=== PATIENT | female | born 1985 | race African-American/Black ===

== ENCOUNTER 2019-05-30 21:47 | Emergency (ER) | payer SELFPAY ==
[2019-05-30] MEDS ORDERED: Ketorolac Tromethamine 30 MG/ML VIAL ONE (22:15)
== END 2019-05-30 22:29 | disposition home or self-care (01) ==
LOC: ERS 21:47
DX: K04.7 Periapical abscess without sinus (principal)
CPT/HCPCS: 96372; 99283; J1885

== ENCOUNTER 2019-08-14 02:08 | Inpatient (IN) | payer MEDICAID, SELFPAY ==
[2019-08-14] MEDS ORDERED: Ondansetron PF 4 MG/2 ML Vial ONE ×2 (02:22→14:46)
[2019-08-14] MEDS ORDERED: Ketorolac Tromethamine 30 MG/ML VIAL ONE ×2 (02:26→14:46)
[2019-08-14 02:33] LABS: #Eosinphils 0.1 thou/uL (0.0-0.7); #Lymphocytes 2.6 thou/uL (1.20-3.40); #Monocytes 0.7 thou/uL (0.11-0.59); #Neutrophils 6.6 thou/uL (1.40-6.50); %Basophils 0.3 % (0.0-1.0); %Eosinophils 0.9 % (0.0-10.0); %Lymphocytes 26.1 % (21.0-51.0); %Monocytes 6.6 % (0.0-10.0); %Neutrophils 66.1 % (42.0-75.0); Hemoglobin 12.4 g/dL (12.0-16.0); Mean Corpuscular HGB CONC 33.3 g/dL (32.0-36.0); Mean Corpuscular Hemoglobin 26.2 pg (27.0-31.0); Mean Corpuscular Volume 78.8 fL (78.0-98.0); Mean Platelet Volume 8.3 fL (7.4-10.4); Platelet Count 333 thou/uL (130-400); RBC Distribution Width 13.6 % (11.5-14.5); Red Blood Cell (RBC) Count 4.73 mill/uL (4.20-5.40)
[2019-08-14 02:50] LABS: ALT (SGPT) 14 U/L (8-55); AST (SGOT) 19 U/L (5-34); Albumin 4.4 g/dL (3.5-5.0); Alkaline Phosphatase 81 U/L (40-110); Anion Gap 11 mmol/L (10-20); BUN (Urea Nitrogen) 11 mg/dL (7.0-18.7); Bilirubin, Total 0.2 mg/dL (0.2-1.2); Calc. Creatinine Clearance 0 mL/min (70-130); Calcium 9.6 mg/dL (7.8-10.44); Carbon Dioxide 27 mmol/L (22-29); Chloride 104 mmol/L (98-107); Estimated GFR-MDRD Greater than 90; Globulin 2.9 g/dL (2.4-3.5); Glucose 103 mg/dL (70-105); Lipase 47 U/L (8-78); Potassium 3.3 mmol/L (3.5-5.1); Protein, Total 7.3 g/dL (6.0-8.3); Sodium 139 mmol/L (136-145)
[2019-08-14 02:56] LABS: Pregnancy Test - Urine (BHCG) Negative (Negative); Pregu Control Background? CLEAR/WHITE (CLR/WHITE); Pregu Control Bar Appear? YES (CONTROL BAR); Specific Gravity 1.012 (1.002-1.036)
[2019-08-14 02:58] LABS: Bilirubin Negative (Negative); Blood, Urine 1+ (Negative); Clarity Turbid (Clear); Glucose, Urine (Dipstick) Normal (Negative); Leukocyte 250 Leu/uL (Negative); Nitrite Negative (Negative); Protein, Urine (Dipstick) 10 mg/dL (Neg-Trace); RBC/HPF 21-50 HPF (0-3); Squamous Epithelial 0-3 HPF (0-3); Urobilinogen Normal mg/dL (Less than 2); WBC/HPF Greater than 50 HPF (0-3)
[2019-08-14 03:00] LABS: Bacteria/HPF 1+ HPF (None Seen)
[2019-08-14] MEDS ORDERED: Ondansetron PF 4 MG/2 ML Vial IVP PRN (04:29)
[2019-08-14] MEDS ORDERED: Ondansetron ODT 4 MG TAB SL PRN (04:29)
[2019-08-14] MEDS ORDERED: Ketorolac Tromethamine 30 MG/ML VIAL IVP PRN (04:30)
[2019-08-14] MEDS ORDERED: Acetaminophen 325 MG TAB PO PRN (05:10)
[2019-08-14] MEDS: Dextrose 5 % And 0.9 % NaCl 1,000 ML IV SCH ×2 (05:38→20:12)
[2019-08-14] MEDS ORDERED: Potassium Chloride 20 MEQ in Premix Bag 1 BAG IVPB SCH (06:30)
[2019-08-14] MEDS: cefTRIAXone\\ROCEPHIN 1 GM in Sodium Chloride 0.9% 100 ML IVPB SCH (06:57)
--- NOTE | 2019-08-14 08:37 | CT ---
PRELIMINARY REPORT/[facility]/EMERGENCY AFTER HOURS PROCEDURE: Receipt of this report by the clinical staff was confirmed with Josette French by Ainsley Morton on 2019 03:25:00 NAIL ASSEMBLY MACHINE OPERATOR. Addendum electronically signed by Ainsley Morton on August 14, 2019 3:25:24 AM NAIL ASSEMBLY MACHINE OPERATOR EXAM: CT Abdomen and Pelvis Without Intravenous Contrast CLINICAL HISTORY: 34 yo F presents to ED with c/o right flank pain. pt reports sudden onset right flank pain that start ed yesterday, with associated nausea, vomiting, chills, some right sided abdominal pain, and some uri nary frequency. TECHNIQUE: Axial computed tomography images of the abdomen and pelvis without intravenous contrast. CONTRAST: None. COMPARISON: None provided. FINDINGS: LUNG BASES: No basilar airspace consolidation or pleural effusion. LIVER: Unremarkable. GALLBLADDER AND BILE DUCTS: Unremarkable. No calcified stone. No ductal dilation. PANCREAS: Unremarkable. SPLEEN: Unremarkable. ADRENAL GLANDS: Unremarkable. KIDNEYS, URETERS, AND BLADDER: Right proximal ureter stone measuring 1.0 x 1.5 x 2.7 cm. Within the right ureter, there are also a 7 mm stone and distal right ureteral 5 mm stone. There is resulting m oderate right hydronephrosis. There is calcification of bilateral renal medulla. STOMACH AND BOWEL: No obstruction. No wall thickening. No CT evidence of colitis or acute diverticuli tis. APPENDIX: No CT evidence for appendicitis. PERITONEUM: No free fluid. No free air. LYMPH NODES: No lymphadenopathy. REPRODUCTIVE: Unremarkable as visualized. VASCULATURE: No aortic aneurysm. ABDOMINAL WALL AND SOFT TISSUES: Unremarkable. BONES: No fracture or suspicious osseous abnormality. IMPRESSION: 1. Multiple obstructing the right sided urinary stones measuring up to 2.7 cm at the right renal pel vis/proximal ureter junction. This results in moderate acute right hydronephrosis. Recommend urolog y evaluation. 2. Medullary nephrocalcinosis suggested. Correlate for hyperparathyroidism, medullary sponge kidney or renal tubular acidosis among other potential causes. ELECTRONICALLY SIGNED BY: [place] M.D. Aug 14, 2019 3:17:19 AM NAIL ASSEMBLY MACHINE OPERATOR This report is intended for review by the ordering physician only, in accordance of law. If you recei ve this report in error, please call [facility] at [phone]. FINAL REPORT ABDOMEN CT WITH CONTRAST PELVIC CT WITH CONTRAST: HISTORY: Right flank pain. Sudden onset. FINDINGS: ABDOMEN CT: Clear lung bases. Limited evaluation of the solid organs by the absence of IV contrast. Grossly, no solid organ abnormality. Ventral abdominal wall hernia containing mesenteric fat with stranding. No bowel herniation. Limite d evaluation of the alimentary canal by the lack of oral contrast. No bowel obstruction. Normal ora iber appendix. There is bilateral medullary calcification. Correlate for renal tubular acidosis versus hyperparathy roidism versus medullary sponge kidney. No evidence of left-sided obstructive uropathy. There is se shilpa right-sided obstructive uropathy secondary to a calculus in the right proximal ureter. This ora culus measures 2.5 cm craniocaudal x 1.3 cm mediolateral x 0.9 cm anterior posterior. Right ureter i s dilated secondary to a calculus in the right ureterovesicular junction measuring 0.8 x 0.6 cm in th e axial plane. There is a third calculus in the right ureterovesicular junction measuring 0.4 x 0[address]: Limited evaluation due to technique. Possible fluid in the endometrium. Possible large cyst occupyi ng the majority of the right ovary measuring 2.4 x 2.8 cm with an attenuation coefficient of 17 Houns field units. Left adnexa is grossly unremarkable. IMPRESSION: 1. Three separate obstructing calculi along the course of the right ureter as described above. Asso ciated severe hydronephrosis. 2. Increased density in both renal medulla as described above. 3. Hypodensities in the left and right adnexa, incompletely evaluated. Pelvic ultrasound may be dale eficial. 4. Normal caliber appendix. 5. Ventral abdominal hernia containing mesenteric fat. This report is essentially in agreement with the initial report by [facility]. Nonemergent ult rasound is recommended to better assess the adnexa. CODE T POS: PPP
[2019-08-14] MEDS ORDERED: Potassium Chloride 20 MEQ TAB PO SCH (08:45)
[2019-08-14] MEDS ORDERED: Enoxaparin Sodium 40 MG/0.4 ML SYRINGE SC SCH (09:00)
[2019-08-14] MEDS: Tamsulosin HCl 0.4 MG CAP PO SCH (09:03)
[2019-08-14] MEDS: Famotidine/PF 20 mg/2ml Vial SLOW IVP SCH ×2 (09:04→20:13)
--- NOTE | 2019-08-14 10:01 | HP ---
CHIEF COMPLAINT: Right flank pain. HISTORY OF PRESENT ILLNESS: The patient is a 34-year-old female with no past medical history, who presents to the hospital, complains of right flank pain x1 day. The patient states that she had an episode with right flank pain about a month ago, which resolved on its own. She stated that last night she started having intense pain, they were worse than labor pain, followed by nausea, vomiting, and so she came into the hospital for further evaluation. PAST MEDICAL HISTORY: Denies. SURGICAL HISTORY: She has had x2. SOCIAL HISTORY: She denies any alcohol use, drug use, or smoking history. She is a full code. ALLERGIES: SHE HAS NO KNOWN DRUG ALLERGIES. FAMILY HISTORY: Mother has diabetes. REVIEW OF SYSTEMS: All negative except for the ones mentioned above in the HPI. PHYSICAL EXAMINATION: VITAL SIGNS: Temperature 98.9, pulse 68, respirations 14, oxygen saturation 98% on room air, blood pressure 142/93. GENERAL: She is awake, alert, oriented x3, does not appear in distress. CVS: S1 and S2 present. No murmurs, rubs, or gallops. LUNGS: Clear to auscultation with no rhonchi or wheezes noted. ABDOMEN: Soft and nontender. Bowel sounds are present x2. EXTREMITIES: No edema. Pedal pulses are present x2. NEUROVASCULAR: There are no focal deficits noted. SKIN: No cuts, lesions, or bruises noted. LABORATORY RESULTS: WBCs of 10.0, hemoglobin of 4.7, hematocrit of 37.3, platelets of 333. Chemistries; sodium 139, potassium 3.3, BUN of 11, creatinine 0.78. High urine indicated leukocyte esterase of 250, wbc's greater than 50, and 1+ bacteria. She did have a CT abdomen and pelvis, which indicated a very large 2.7 cm right ureteral, UV junction stone; and mild hydronephrosis. ASSESSMENT AND PLAN: The patient is a 34-year-old female, who presents to the hospital with complaints of right flank pain. 1. Right flank pain secondary to kidney stone. We will start the patient on some IV hydration. We will start her on Flomax. We will also give her prophylactic antibiotics. She is n.p.o. right now as Urology has been consulted. Also, we will start the patient on some Toradol. She had significant relief upon using Toradol. 2. Deep venous thrombosis prophylaxis. We will put the patient on SCDs. Job ID: [id number]
[2019-08-14] MEDS ORDERED: Lidocaine 1% PF 5 ML VIAL ONE (14:46)
[2019-08-14] MEDS ORDERED: Dexamethasone 20 MG/5 ML VIAL ONE (14:46)
[2019-08-14] MEDS ORDERED: PROPOFOL 200 MG/20 ML VIAL ONE (14:46)
--- NOTE | 2019-08-14 15:29 | PDOC.BPN ---
- Brief Progress Note The patient was seen and examined prior to her urologic procedure today. She had no new complaints at the time. Appetite potassium will be replaced. She is afebrile. I will continue IV antibiotics for UTI. Appreciate UROLOGY.
[2019-08-14] MEDS ORDERED: Iothalamate Meglumine 60% 50 ML VIAL FS ONE (16:12)
[2019-08-14] MEDS ORDERED: Fentanyl 100 MCG/2 ML VIAL ONE ×2 (16:43→17:39)
[2019-08-14] MEDS ORDERED: cefTRIAXone\\ROCEPHIN 2 GM VIAL ONE (17:47)
[2019-08-14] MEDS ORDERED: Sodium Chloride 0.9% 100 ML ONE (17:48)
[2019-08-14] MEDS ORDERED: Meperidine HCl/PF 25 MG/ML VIAL SLOW IVP PRN (18:14)
[2019-08-14] MEDS ORDERED: Promethazine HCl 25 MG/ML VIAL SLOW IVP PRN (18:14)
[2019-08-14] MEDS ORDERED: B & O ONE (18:20)
--- NOTE | 2019-08-14 18:37 | RAD ---
EXAM: XR IVP Retrograde DATE: 08/14/2019 12:00 AM INDICATION: Right renal stone and stent COMPARISON: CT the abdomen and pelvis without contrast dated August 14, 2019 FINDING: Submitted images demonstrate wire placement within the right ureteral stent traversing the patient's large right proximal ureteral stone. Subsequent images demonstrate retrograde opacification of the right renal collecting system with a focal filling defect within the right proxi mal ureter. There is mild right hydronephrosis. Subsequent images demonstrate placement of a right ureteral stent. A moderate residual stone is suspected within the distal right ureter on the final webster bmitted image. IMPRESSION:IVP with placement of a right ureteral stent. Moderate residual stone is suspected within distal right ureter adjacent to the right ureteral stent on the final submitted image.
[2019-08-14] MEDS: Trospium 20 MG TAB PO SCH (20:13)
[2019-08-14] MEDS ORDERED: FLU VACC QS2019-20(6MOS UP)/PF 60 MCG/0.5 ML SYRINGE IM ONE (21:00)
--- NOTE | 2019-08-14 22:39 | CON ---
DATE OF CONSULTATION: 08/14/2019 REASON FOR HOSPITAL ADMISSION: Right-sided flank pain and right kidney stones. 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 The patient is 3, para 4. She reports she had severe right-sided flank pain symptoms, presented to the [place] [facility] last night, underwent CT scanning which demonstrated fragmented stones in her left upper ureter. These were impacted and had a Steinstrasse formation. The patient was subsequently transported to the [facility] Emergency Department and admitted for observation, potential stent placement, possible early discharge. The patient has been n.p.o. all day since yesterday evening. At the present time, she has intermittent right-sided flank pain symptoms into the Steinstrasse configuration were concerning proceeding to the operating room. In total, her stone burden is about 1 cm x 1.5 cm x 2.7 cm in a Steinstrasse configuration. ALLERGIES: NO KNOWN DRUG ALLERGIES. CURRENT MEDICATIONS: None. PAST MEDICAL HISTORY: The patient has had several births including a . She had a child about 10 months ago as well. She has twins as well. SOCIAL HISTORY: The patient is a cigarette smoker at half pack per day for 20 years. She does not consume significant amounts of alcohol. No other substance abuse issues. PHYSICAL EXAMINATION: VITAL SIGNS: Weight 180 pounds, temperature 98.5, pulse 76, respirations 16, blood pressure is 119/66, O2 saturation is 98% on room air. GENERAL: Awake, alert, pleasant, female, in no apparent distress. She reports severe right-sided flank pain symptoms, which have improved significantly on Toradol. She has had some nausea and had severe vomiting as well prior to the Toradol. ABDOMEN: Soft, obese, and nontender. The patient has recently delivered a child. There is a Pfannenstiel type surgical incisional scar, which is well healed. BACK: After the administration of Toradol, she had complete resolution of her symptoms and on percussion, I am not able to elicit any flank pain symptoms at the present. She does report intermittent discomfort and severe vomiting prior to that. EXTREMITIES: Appear within normal limits with no clubbing, cyanosis, or edema. GENITOURINARY: Deferred to the operative suite. LABORATORY STUDIES: As per the [place] [facility]. CT scan of the abdomen and pelvis demonstrates significant stone burden as described. Study from 08/14/2019 shows 1 cm x 1.5 cm x 2.7 cm total stone burden. I did review those films on the [employer] monitor. ASSESSMENT: 1. Steinstrasse of the right ureter. 2. The plan will be to proceed to the operating room with cystoscopy and stent placement. 3. History of borderline gestational diabetes rather. The patient's blood glucose should be monitored. TIME SPENT: Total evaluation and coordination of care time today is 70 minutes exclusive of any procedures performed. Job ID: [id number]
--- NOTE | 2019-08-15 00:32 | OP ---
DATE OF PROCEDURE: 08/14/2019 LOCATOR SURGEON: None. PREOPERATIVE DIAGNOSES: Right ureteral calculi and Steinstrasse configuration with intractable right-sided flank pain. POSTPROCEDURE DIAGNOSES: Right ureteral calculi and Steinstrasse configuration with intractable right-sided flank pain, predominantly radiolucent stones. PROCEDURES PERFORMED: 1. Cystourethroscopy with right-sided stent, 56072. 2. Cystourethroscopy with snare capture of right distal ureteral calculus. 3. Right retrograde pyelography, 99397. SPECIMENS REMOVED: Right ureteral stones for chemical analysis. These were pale, white in coloration, and mostly radiolucent. ESTIMATED BLOOD LOSS: 0 mL. DRAINS AND TUBES: 4.5-Malaysian x 28 cm double-J ureteral stent in the right ureter. BRIEF HISTORY: Ms. Garg is a very pleasant 34-year-old, Tamazight-speaking female with no previous history of kidney stones. She has had three pregnancies and four births including twins and recently had her 4th child. The patient reported severe pain symptoms, presented to the [facility] Emergency Department, underwent CT scanning demonstrating very significant stone burden enlarged in her right UPJ area. She had intractable pain and ultimately decided to proceed to the [facility] for evaluation and assessment, where I saw her. The patient underwent cystoscopic evaluation today as outlined in the operative note. DESCRIPTION OF PROCEDURE: The patient was appropriately identified in the preoperative holding area. Informed written consent was obtained. The patient was transported to the operative suite, placed in a supine position on the cysto-fluorographic table. General anesthesia was established using LMA airway. The patient was prepped and draped in usual sterile fashion after repositioning in the supine lithotomy position. Cystoscopic evaluation was then performed. The patient's bladder was free of any calculi. We noted that the right distal ureter was enlarged in characteristic. The right distal ureteral calculus was dislodged and snare captured. Multiple small additional fragments proceeded from the right UO. We placed a right-sided double-J ureteral stent, procedure consisting of placement of a 0.035 angled Glidewire which was advanced over a 5-Malaysian Pollack catheter. We performed retrograde pyelography demonstrating radiolucent filling defects. The patient then had replacement of the Glidewire and placement of a 4.5-Malaysian x 28 cm double-J ureteral stent. The patient tolerated that portion of procedure well. Her bladder was drained. We placed belladonna and opioid suppository 16A 60 mg per rectum. The patient tolerated the procedure well. She was transported to the postoperative recovery area, doing well, anticipated she will be returned to the surgical floor, and ultimately discharged home. The patient will follow up in my office in two weeks time with a KUB imaging study, and we will see her in the office for review that after that is performed. Job ID: [id number]
[2019-08-15] MEDS: Dextrose 5 % And 0.9 % NaCl 1,000 ML IV SCH (06:00)
[2019-08-15 08:04] VITALS: BP 134/78; TEMP 98.2
[2019-08-15] MEDS ORDERED: Phenazopyridine HCl 97.5 MG TABLET PO SCH (09:00)
[2019-08-15] MEDS: Tamsulosin HCl 0.4 MG CAP PO SCH (09:10)
[2019-08-15] MEDS: cefTRIAXone\\ROCEPHIN 1 GM in Sodium Chloride 0.9% 100 ML IVPB SCH (09:10)
[2019-08-15] MEDS: Trospium 20 MG TAB PO SCH (09:11)
[2019-08-15] MEDS: Famotidine/PF 20 mg/2ml Vial SLOW IVP SCH (09:13)
--- NOTE | 2019-08-16 02:07 | DIS ---
DATE OF ADMISSION: 08/14/2019 DATE OF DISCHARGE: 08/15/2019 HISTORY OF PRESENT ILLNESS: This is a 34-year-old female with no significant past medical history, who presented to the emergency department with complaints of right flank pain for one day. The patient stated that her pain was 10/[address] scan of the abdomen without contrast showed fragmented stones in her right ureter. Urinalysis revealed evidence of possible UTI. The patient was admitted to the hospital for further management. HOSPITAL COURSE: The patient was not septic. IV antibiotics were started empirically for possible UTI. Urology Service consulted and the patient underwent successful stone extraction with stent placement. Postoperatively, the patient had no complaints and did not exhibit any signs of sepsis. DISCHARGE DIAGNOSES: 1. Obstructing right ureteric stone. 2. Urinary tract infection. DISCHARGE MEDICATIONS: 1. Augmentin 875/125 one tablet orally twice daily. 2. Tamsulosin 0.4 mg orally daily for 14 days. 3. Tylenol 650 mg orally q.4 hours as needed for pain. DISCHARGE INSTRUCTIONS: Activity: As tolerated. Increase fluid intake. Follow up with Urology in 2 weeks. A KUB order was given to the patient to be obtained prior to her followup appointment. Job ID: [id number]
--- NOTE | 2019-08-16 04:50 | PQF ---
Celia Garg MOEZ [id number] CLINICAL DOCUMENTATION CLARIFICATION FORM: POST DISCHARGE Addendum to original discharge summary date: ____ Late entry note date: __ DATE:08/16/2019 ATTN: Liam Del Cid Please exercise your independent, professional judgment in responding to the clarification form. Clinical indicators are provided on the bottom of this form for your review In your clinial opinion based on clinical findings below, can you please clarify clinical significance of Radiology findings if: Please check appropriate box(s): [ >> ] Hydronephrosis is clinically significant to patient's condition [ ] Hydronephrosis is abnormal findings not clinically significant [ ] Other diagnosis [ ] Unable to determine In addition, please specify: Present on Admission (POA): [ >> ] Yes [ ] No [ ] Unable to determine For continuity of documentation, please document condition throughout progress notes and discharge summary. Thank You. CLINICAL INDICATORS - SIGNS / SYMPTOMS / LABS CT abdomen 08/14 Impression: Multiple obstructing right sided urinary stone at right ureter junction. This result in moderate acute right hydronephrosis. Retrograde Pyelogram 08/14 Findings : there is mild right hydronephrosis H&P p1 08/14 Dr Whyte complains of right flank pain x1 day. The pt states that she had an episode with right flank pain about a month ago, which resolved on its own RISK FACTORS Discharge summary p1 08/15 Obstructing right ureteric stone Discharge summary p1 08/15 Urinary tract infection TREATMENTS: SEP 03 IV Rocephin 2gm MAR 08/14 IVF 1L MAR 08/14 Flomax 0.4 mg po SEP 03 Vesicare 5mg po Operative report 08/14 Cystourethroscopy with stent insertion, stone extraction and Right retrograde pyelogram Urology consult 08/14 Roberto Garcia (This form is maintained as a part of the permanent medical record) 2014 [employer] All Rights Reserved [email or web address]
== END 2019-08-15 11:10 | disposition home or self-care (01) | DRG 661 ==
LOC: ERS 02:08 → OBSVTOIN 04:24 → 3SE 04:24
PROVIDERS: ADMIT Internal Medicine; ATTEND Internal Medicine
PROC: 0TC68ZZ Extirpation of Matter from Right Ureter, Via Natural or Artificial Opening Endoscopic (ICD-10-PCS; principal; 2019-08-14)
PROC: 0T768DZ Dilation of Right Ureter with Intraluminal Device, Via Natural or Artificial Opening Endoscopic (ICD-10-PCS; 2019-08-14)
PROC: BT1DZZZ Fluoroscopy of Right Kidney, Ureter and Bladder (ICD-10-PCS; 2019-08-14)
DX: N13.6 Pyonephrosis (principal); Z28.21 Immunization not carried out because of patient refusal
CPT/HCPCS: 36415; 74176; 74420; 80053; 81003; 81015; 81025; 82365; 83690; 85025; 87086; 88300; C1758; C1769; J0696; J1100; J1885; J2001; J2405; J2704; J3010; J3480; J3490; S0028

== ENCOUNTER 2019-11-15 18:23 | Inpatient (IN) | payer MEDICAID ==
[2019-11-15 18:55] LABS: #Lymphocytes 1.6 thou/uL (1.20-3.40); #Monocytes 0.6 thou/uL (0.11-0.59); #Neutrophils 12.1 thou/uL (1.40-6.50); %Basophils 0.2 % (0.0-1.0); %Eosinophils 0.1 % (0.0-10.0); %Lymphocytes 11.1 % (21.0-51.0); %Monocytes 4.1 % (0.0-10.0); %Neutrophils 84.4 % (42.0-75.0); Hemoglobin 10.2 g/dL (12.0-16.0); Mean Corpuscular HGB CONC 32.1 g/dL (32.0-36.0); Mean Corpuscular Hemoglobin 24.9 pg (27.0-31.0); Mean Corpuscular Volume 77.4 fL (78.0-98.0); Platelet Count 528 thou/uL (130-400); White Blood Cell (WBC) Count 14.4 thou/uL (4.8-10.8)
[2019-11-15] MEDS ORDERED: Ondansetron PF 4 MG/2 ML Vial ONE (19:15)
[2019-11-15 19:18] LABS: ALT (SGPT) 17 U/L (8-55); AST (SGOT) 15 U/L (5-34); Albumin 3.9 g/dL (3.5-5.0); Alkaline Phosphatase 90 U/L (40-110); Anion Gap 16 mmol/L (10-20); BUN (Urea Nitrogen) 10 mg/dL (7.0-18.7); Bilirubin, Total 0.7 mg/dL (0.2-1.2); Calc. Creatinine Clearance 0 mL/min (70-130); Calcium 9.7 mg/dL (7.8-10.44); Carbon Dioxide 22 mmol/L (22-29); Chloride 101 mmol/L (98-107); Estimated GFR-MDRD 70; Globulin 3.9 g/dL (2.4-3.5); Glucose 88 mg/dL (70-105); Potassium 3.9 mmol/L (3.5-5.1); Protein, Total 7.8 g/dL (6.0-8.3); Sodium 135 mmol/L (136-145)
[2019-11-15 19:55] LABS: Bilirubin Negative (Negative); Blood, Urine 1+ (Negative); Clarity Turbid (Clear); Glucose, Urine (Dipstick) Normal (Negative); Leukocyte 500 Leu/uL (Negative); Nitrite Negative (Negative); Pregnancy Test - Urine (BHCG) Negative (Negative); Pregu Control Background? CLEAR/WHITE (CLR/WHITE); Pregu Control Bar Appear? YES (CONTROL BAR); Protein, Urine (Dipstick) 30 mg/dL (Neg-Trace); Specific Gravity 1.016 (1.002-1.036); Squamous Epithelial 0-3 HPF (0-3); Urobilinogen Normal mg/dL (Less than 2); WBC/HPF 21-50 HPF (0-3)
[2019-11-15 20:03] LABS: Bacteria/HPF 1+ HPF (None Seen)
[2019-11-15] MEDS ORDERED: Ketorolac Tromethamine 30 MG/ML VIAL ONE (20:40)
--- NOTE | 2019-11-15 21:23 | CT ---
CT OF THE ABDOMEN AND PELVIS WITHOUT IV CONTRAST: 11/15/19 INDICATION: Flank pain with vomiting. COMPARISON: CT of the abdomen and pelvis dated 08/14/19 and IVP retrograde evaluation dated 11/12/19. FINDINGS: There are small bilateral pleural effusions. The unopacified liver, pancreas, and adrenal glands are unremarkable appearing. There is persistent prominent right sided hydronephrosis. There is a right sided ureteral stent in pl fili. There is a 1.3 cm stone seen within the right mid ureter adjacent to the right ureteral stent. T here is an additional 6 mm stone involving the distal right ureter on image 62 of series 2. One addit ional 3.5 mm stone is seen within the mid to distal right ureter on image 61 of series 2. The stent i s in the expected position within the bladder. There is bilateral medullary nephrocalcinosis that is similar appearing. The left sided renal collecting system is nondistended. There is a small anterior midline abdominal wall hernia containing fat. There is slight increasing fl uid within the hernia sac possibly related to fluid from the abdominal cavity or changes of bowel str angulation. Fat containing umbilical hernia is similar appearing. Reproductive structures are not well evaluated on the current examination. The colon is largely decom pressed. Small bowel is of normal caliber. There is a normal retrocecal appendix. Small amount of free fluid is seen within the pelvis which is nonspecific. No definite acute osseous abnormality is evident. IMPRESSION: 1. Previously seen 13 mm proximal right ureteral stone has likely migrated distally to the mid t o distal right ureter with additional 6 mm and 3.5 mm stones within the mid to distal right ureter. T here is a right ureteral stent in place. 2. There is persistent prominent dilatation of the right renal collecting system. 3. Stable medullary nephrocalcinosis. 4. Slight increasing fluid in the hernia sac involving a midline anterior abdominal wall hernia containing fat. Some of this may be related to some fluid from the abdominal cavity protruding into t he hernia sac; however, component of strangulation is not entirely excluded. Recommend correlation w ith clinical examination. 5. Other findings as above. POS: BH
[2019-11-15] MEDS ORDERED: cefTRIAXone\\ROCEPHIN 1 GM VIAL ONE (21:30)
[2019-11-15] MEDS ORDERED: Morphine 4 MG/ML VIAL ONE (21:30)
[2019-11-15] MEDS ORDERED: Vancomycin 1 GM/200 ML BAG ONE (21:52)
[2019-11-15] MEDS ORDERED: Ondansetron PF 4 MG/2 ML Vial IVP PRN (22:51)
[2019-11-15] MEDS ORDERED: Acetaminophen 325 MG TAB PO PRN (22:51)
[2019-11-15] MEDS ORDERED: Ondansetron ODT 4 MG TAB SL PRN (22:51)
[2019-11-15] MEDS ORDERED: Sodium Chloride 0.9% 1,000 ML IV SCH (22:51)
[2019-11-15 23:23] VITALS: BMI 28.2
[2019-11-16] MEDS ORDERED: hydrALAZINE 20 MG/ML VIAL SLOW IVP PRN (00:46)
[2019-11-16] MEDS ORDERED: Labetalol HCl 100 MG/20 ML VIAL SLOW IVP PRN (00:46)
[2019-11-16] MEDS ORDERED: Morphine 2 MG/ML SYRINGE SLOW IVP PRN (00:46)
[2019-11-16] MEDS ORDERED: Ondansetron PF 4 MG/2 ML Vial IVP PRN (00:46)
[2019-11-16] MEDS ORDERED: Promethazine HCl 12.5 MG in Sodium Chloride 0.9% 50 ML IVPB PRN (00:46)
[2019-11-16] MEDS ORDERED: cloNIDine 0.1 MG TAB PO PRN (00:46)
[2019-11-16] MEDS ORDERED: Guaifenesin DM 100-10/5 ML UDCUP PO PRN (00:48)
[2019-11-16] MEDS ORDERED: Senokot S 8.6-50 MG TAB PO PRN (00:48)
[2019-11-16] MEDS ORDERED: Bisacodyl 5 MG TAB PO PRN (00:48)
[2019-11-16] MEDS ORDERED: HYDROcodone/Acetaminophen 5/325 mg Tablet PO PRN (00:48)
--- NOTE | 2019-11-16 00:53 | PDOC.HHP ---
Hospitalist HPI - History of Present Illness Flank pain History of Present Illness: Patient is a 34 year old female with PMH kidney stones, urologic stent who presents to ED for R flank pain and vomiting x 2 weeks which has been worsening progressively, patient did not seek treatment for this until today got ciprofloxacin and zofran but did not help, denies dysuria/fever/chills, no cough or SOB or chest pain. the flank pain is R sided and colicy/deep and dull and throbbing. Patient had a urologic stent placed in august. In ED temperature 103.2, vitals otherwise stable. UA w/ positive infectious markers and UTI. CT scan revealed 3 very large stones the biggest of which was 1.3 cm and stent w/ severe hydronephrosis. Patient was started on broad-spectrum antibiotics with IV fluid and urology consultation. Patient admitted to medicine w/ urology consultation by ED. Hospitalist ROS - Review of Systems Constitutional: reports: fever. denies: chills, sweats, weakness, malaise, other Eyes: denies: pain, vision change, conjunctivae inflammation, eyelid inflammation, redness, other ENT: denies: ear pain, ear discharge, nose pain, nose discharge, nose congestion , mouth pain, mouth swelling, throat pain, throat swelling, other Respiratory: denies: cough, dry, shortness of breath, hemoptysis, SOB with excertion, pleuritic pain, sputum, wheezing, other Cardiovascular: denies: chest pain, palpitations, orthopnea, paroxysmal noc. dyspnea, edema, light headedness, other Gastrointestinal: reports: nausea, vomiting, abdominal pain, other (R flank pain ). denies: diarrhea, constipation, melena, hematochezia Genitourinary: denies: dysuria, frequency, incontinence, hematuria, retention, other Musculoskeletal: reports: back pain. denies: neck pain, shoulder pain, arm pain , hand pain, leg pain, foot pain, other Skin: denies: rash, lesions, andres, bruising, other Neurological: denies: weakness, numbness, incoordination, change in speech, confusion, seizures, other All other systems reviewed; all pertinent +/- noted in HPI/Subj - Medication Medications: Active Medications Generic Name Dose Route Start Last Admin Trade Name Freq PRN Reason Stop Dose Admin Sodium Chloride 1,000 mls @ 200 mls/hr 11/15/19 22:51 11/15/19 23:01 Normal Saline 0.9% IV 11/16/19 09:30 1,000 mls .Q5H WILLIAM Administration Hospitalist History - Past Surgical History Other Surgical History: c section x 2 R renal stent placed in august - Family History Family History: reports: no pertinent history - Social History Smoking Status: Never smoker Alcohol: reports: None Drugs: reports: none - Exam General Appearance: NAD, awake alert Eye: PERRL, anicteric sclera ENT: normocephalic atraumatic, no oropharyngeal lesions, moist mucosa Neck: supple, symmetric, no JVD, no thyromegaly, no lymphadenopathy, no carotid bruit Heart: RRR, no murmur, no gallops, no rubs, normal peripheral pulses Respiratory: CTAB, no wheezes, no rales, no ronchi, normal chest expansion, no tachypnea, normal percussion Gastrointestinal: soft, non-tender, non-distended, normal bowel sounds, no palpable masses, no hepatomegaly, no splenomegaly, no bruit Extremities: no cyanosis, no clubbing, no edema Skin: normal turgor, no lesions, no rashes Neurological: cranial nerve grossly intact, normal sensation to touch, no weakness, no focal deficits, no new deficit Musculoskeletal: normal tone, normal strength, no muscle wasting Psychiatric: normal affect, normal behavior, A&O x 3 Hospitalist Results - Labs Result Diagrams: 11/15/19 18:46 11/15/19 18:46 Lab results: WBC 14.4 thou/uL (4.8-10.8) H 11/15/19 18:46 Hgb 10.2 g/dL (12.0-16.0) L 11/15/19 18:46 Hct 31.7 % (36.0-47.0) L 11/15/19 18:46 MCV 77.4 fL (78.0-98.0) L 11/15/19 18:46 Plt Count 528 thou/uL (130-400) H 11/15/19 18:46 Neutrophils % 84.4 % (42.0-75.0) H 11/15/19 18:46 Sodium 135 mmol/L (136-145) L 11/15/19 18:46 Potassium 3.9 mmol/L (3.5-5.1) 11/15/19 18:46 Chloride 101 mmol/L (98-107) 11/15/19 18:46 Carbon Dioxide 22 mmol/L (22-29) 11/15/19 18:46 BUN 10 mg/dL (7.0-18.7) 11/15/19 18:46 Creatinine 1.09 mg/dL (0.6-1.1) 11/15/19 18:46 Glucose 88 mg/dL (70-105) 11/15/19 18:46 Calcium 9.7 mg/dL (7.8-10.44) 11/15/19 18:46 Total Bilirubin 0.7 mg/dL (0.2-1.2) 11/15/19 18:46 AST 15 U/L (5-34) 11/15/19 18:46 ALT 17 U/L (8-55) 11/15/19 18:46 Alkaline Phosphatase 90 U/L (40-110) 11/15/19 18:46 Serum Total Protein 7.8 g/dL (6.0-8.3) 11/15/19 18:46 Albumin 3.9 g/dL (3.5-5.0) 11/15/19 18:46 Lipase 20 U/L (8-78) 11/15/19 18:46 Urine Ketones 40 mg/dL (Negative) A 11/15/19 19:21 Urine Blood 1+ (Negative) A 11/15/19 19:21 Urine Nitrite Negative (Negative) 11/15/19 19:21 Ur Leukocyte Esterase 500 Estee/uL (Negative) A 11/15/19 19:21 Urine RBC 7-10 HPF (0-3) A 11/15/19 19:21 Urine WBC 21-50 HPF (0-3) A 11/15/19 19:21 Ur Squamous Epith Cells 0-3 HPF (0-3) 11/15/19 19:21 Urine Bacteria 1+ HPF (None Seen) A 11/15/19 19:21 Additional comment: VITAL SIGNS Wed November 15, 2019 21:48 MERY Werner, Shawnaa BP: 125/67 Pulse: 86 Resp: 18 Temp: 99.4 (Oral) Pain: 0 O2 sat: 98 on (Room Air) Time: 11/15/2019 21:48. Hospitalist H&P A/P - Plan Plan: Patient is a 34 year old female with PMH kidney stones, urologic stent who presents to ED for R flank pain and vomiting x 2 weeks. # UTI w/ sepsis # urolithiasis w/ history of urologic stent placed 08/2019 - admit to floor - empiric vancomycin and zosyn - consult urology, NPO - PRN pain and nausea medications - follow culture, deescalate abx as possible # thrombocytosis - noted, perhaps reactive, trend CBC
[2019-11-16] MEDS: Sodium Chloride 0.9% 1,000 ML IV SCH ×3 (01:20→14:32)
[2019-11-16] MEDS: Piperacillin/Tazobactam 3.375 GM in Sodium Chloride 0.9% 100 ML IVPB SCH ×4 (05:31→23:44)
[2019-11-16 06:27] LABS: #Eosinphils 0.1 thou/uL (0.0-0.7); #Lymphocytes 1.2 thou/uL (1.20-3.40); #Monocytes 0.7 thou/uL (0.11-0.59); #Neutrophils 8.5 thou/uL (1.40-6.50); %Basophils 0.2 % (0.0-1.0); %Eosinophils 1.1 % (0.0-10.0); %Lymphocytes 11.5 % (21.0-51.0); %Neutrophils 80.3 % (42.0-75.0); Hemoglobin 8.7 g/dL (12.0-16.0); Mean Corpuscular HGB CONC 30.9 g/dL (32.0-36.0); Mean Corpuscular Hemoglobin 23.8 pg (27.0-31.0); Mean Corpuscular Volume 77.3 fL (78.0-98.0); Mean Platelet Volume 7.4 fL (7.4-10.4); Platelet Count 443 thou/uL (130-400); RBC Distribution Width 13.8 % (11.5-14.5); Red Blood Cell (RBC) Count 3.63 mill/uL (4.20-5.40); White Blood Cell (WBC) Count 10.6 thou/uL (4.8-10.8)
[2019-11-16 06:47] LABS: Anion Gap 13 mmol/L (10-20); BUN (Urea Nitrogen) 8 mg/dL (7.0-18.7); Calc. Creatinine Clearance 106 mL/min (70-130); Calcium 8.5 mg/dL (7.8-10.44); Carbon Dioxide 23 mmol/L (22-29); Chloride 106 mmol/L (98-107); Estimated GFR-MDRD Greater than 90; Glucose 78 mg/dL (70-105); Magnesium 2.1 mg/dL (1.6-2.6); Potassium 3.5 mmol/L (3.5-5.1); Sodium 138 mmol/L (136-145)
[2019-11-16] MEDS: Polyethylene Glycol 3350 17 GM Packet PO SCH (07:48)
[2019-11-16] MEDS: Famotidine 20 MG TAB PO SCH ×2 (07:48→22:00)
[2019-11-16] MEDS: Vancomycin 1 GM in Premix Bag 1 BAG IVPB SCH ×2 (08:12→22:02)
[2019-11-16] MEDS: Enoxaparin Sodium 40 MG/0.4 ML SYRINGE SC SCH (08:37)
[2019-11-16] MEDS ORDERED: Vancomycin 1 GM in Premix Bag 1 BAG IVPB SCH (09:00)
[2019-11-16] MEDS ORDERED: Rocuronium Bromide 10 MG/ML (10ML VIAL) ONE (12:44)
[2019-11-16] MEDS ORDERED: Ondansetron PF 4 MG/2 ML Vial ONE (12:44)
[2019-11-16] MEDS ORDERED: Dexamethasone 20 MG/5 ML VIAL ONE (12:44)
[2019-11-16] MEDS ORDERED: Glycopyrrolate 0.2 MG/ML 5 ML SYRINGE ONE (12:44)
[2019-11-16] MEDS ORDERED: Succinylcholine Chloride 20 MG/ML 10 ml SYRINGE FS ONE (12:44)
[2019-11-16] MEDS ORDERED: Lidocaine 1% PF 5 ML VIAL ONE (12:44)
[2019-11-16] MEDS ORDERED: PROPOFOL 200 MG/20 ML VIAL ONE (12:44)
[2019-11-16] MEDS ORDERED: Fleet Enema 133 ML BOT PR SCH (16:45)
--- NOTE | 2019-11-16 16:54 | PDOC.HOSPP ---
- Subjective Encounter Date: 11/16/19 Encounter Time: 12:00 Subjective: THe patient reported that she was having abd pain for over a month, and intractable nausea/vomiting. No burning when she pees. She states she had stent placement on the right side recently SHe reports high oxalate food consumption including coffee, nuts, chocolate, etc. NO family history of kidney stones - Objective Vital Signs & Weight: Vital Signs (12 hours) Temp Pulse Resp BP Pulse Ox 11/16/19 16:06 99 F 73 18 125/82 98 11/16/19 12:01 98 F 74 16 109/73 100 11/16/19 08:12 98.3 F 70 14 120/77 96 Weight Weight 154 lb 6 oz I&O: 11/15/19 11/16/19 11/17/19 06:59 06:59 06:59 Intake Total 1300 1350 Balance 1300 1350 Result Diagrams: 11/16/19 05:57 11/16/19 05:57 Hospitalist ROS - Review of Systems Constitutional: denies: fever, chills - Medication Medications: Active Medications Generic Name Dose Route Start Last Admin Trade Name Freq PRN Reason Stop Dose Admin Enoxaparin Sodium 40 mg 11/16/19 09:00 11/16/19 08:37 Lovenox SC Not Given 0900 WILLIAM Famotidine 20 mg 11/16/19 09:00 11/16/19 07:48 Pepcid PO Not Given BID WILLIAM Piperacillin Sod/Tazobactam 100 mls @ 200 mls/hr 11/16/19 06:00 11/16/19 11: 29 Sod 3.375 gm/ Sodium Chloride IVPB 100 mls Q6HR WILLIAM Administration Vancomycin HCl 1 gm/ Device 200 mls @ 200 mls/hr 11/16/19 09:00 11/16/19 08: 12 IVPB 11/22/19 21:59 200 mls Q12HR WILLIAM Administration Polyethylene Glycol 17 gm 11/16/19 09:00 11/16/19 07:48 Miralax PO Not Given DAILY WILLIAM Sodium Chloride 10 ml 11/16/19 09:00 11/16/19 08:12 Flush - Normal Saline IVF Not Given Q12HR WILLIAM - Exam General Appearance: NAD, awake alert Eye: PERRL, anicteric sclera ENT: normocephalic atraumatic, no oropharyngeal lesions Neck: supple, no JVD Heart: RRR, no murmur, no gallops, no rubs Respiratory: CTAB, no wheezes, no rales, no ronchi Gastrointestinal: soft, non-tender, normal bowel sounds Gastrointestinal - other findings: RUQ tenderness, right cva tenderness Extremities: no cyanosis, no clubbing, no edema Skin: normal turgor, no lesions, no rashes Neurological: cranial nerve grossly intact, normal sensation to touch, no focal deficits, no new deficit Musculoskeletal: normal tone, normal strength, no muscle wasting Psychiatric: normal affect, normal behavior, A&O x 3, oriented to person Hosp A/P - Plan CT abdomen: 13 mm proximal right ureteral stone migrating distally to the mid to distal right ureter. Prominent dilation of right renal collection system. STable medullary nephrocalcinosis. Increasing fluid in hernia sac in anterior abd wall This is an 34 year old male presenting with right sided abd pain, nausea, vomiting, found to have multiple kidney stones with hydronephrosis Right ureteral kidney stone with hydronephrosis - plan to take patient to OR today for laser lithotripsy and placement of another stent - continue IV antibiotics. Urine culture shows no growth - WBC is down from 14 to 10 Abd wall hernia - pt has no pain from this currently Microcytic anemia - Hb 8, MCV 77, will check iron panel in am COde status: full code
[2019-11-16] MEDS ORDERED: Iopamidol 50 ML FS ONE (17:44)
[2019-11-16] MEDS ORDERED: Midazolam HCl 2 mg/2 ml Vial ONE (17:46)
[2019-11-16] MEDS ORDERED: Fentanyl 100 MCG/2 ML VIAL ONE (17:46)
[2019-11-16] MEDS ORDERED: Sodium Chloride 0.9% 100 ML ONE (18:13)
[2019-11-16] MEDS ORDERED: Piperacillin/Tazobactam 3.375 GM VIAL ONE (18:13)
[2019-11-16] MEDS: Dextrose 5 % And 0.9 % NaCl 1,000 ML IV SCH (21:02)
[2019-11-16] MEDS ORDERED: Promethazine HCl 25 MG/ML VIAL SLOW IVP PRN (21:03)
[2019-11-16] MEDS ORDERED: Promethazine HCl 25 MG/ML VIAL IM PRN (21:03)
[2019-11-16] MEDS ORDERED: Ondansetron HCl/PF 4 MG/2 ML Vial IVP PRN (21:03)
--- NOTE | 2019-11-16 23:10 | CON ---
DATE OF CONSULTATION: 11/16/2019 REASON FOR CONSULTATION: Multiple ureteral calculi on the right side with indwelling existing double-J ureteral stent. BRIEF HISTORY: Ms. Celia Garg is a very pleasant 34-year-old female, who I am acquainted with due to her history of nephrolithiasis. She has multiple stones in her right ureter and has already been stented in the previous admission. The patient at the present time has significant hydronephrosis and hydroureter, as well as multiple stones lodged in her right ureter. The patient presented with severe pain and discomfort. She does have a history of medullary nephrocalcinosis and due to that is at risk for stone formation. Most likely a renal tubular acidosis is a contributor to her problem. The patient presents via the emergency department with uncontrolled pain symptoms. She has been started on vancomycin and piperacillin-tazobactam by the primary service. Ms. Garg reports she feels much better than she did when she emergently came to the hospital for pain symptoms. Her pain is well under control with the medications she has been receiving. ALLERGIES: NO KNOWN DRUG ALLERGIES. MEDICATIONS: In-hospital medications include the followin. [place] 5/325. 2. DuoNeb. 3. Dulcolax. 4. Clonidine 0.1 mg p.o. b.i.d. 5. Pepcid 20 mg b.i.d. 6. Guaifenesin 15 mg p.o. q.4 hours p.r.n. 7. Hydralazine 10 mg slow drip q.6 hours. 8. Labetalol 20 mg slow IVP for blood pressure greater than 160. 9. Morphine sulfate p.r.n. severe pain. 10. Zofran 4 mg IV p.r.n. 11. Piperacillin-tazobactam 3.375 g q.6 hours scheduled. 12. Promethazine hydrochloride 12.5 mg every 6 hours for nausea. 13. Vancomycin 1 g q.12 hours. The patient did have a previous dose of ceftriaxone yesterday, as well as ketorolac. PAST MEDICAL HISTORY: 1. Known history of kidney stones. 2. Medullary nephrocalcinosis. PAST SURGICAL HISTORY: Cystourethroscopy and stent placement in August on the right side. FAMILY MEDICAL HISTORY: Noncontributory. SOCIAL HISTORY: Denies current alcohol or smoking. PHYSICAL EXAMINATION: VITAL SIGNS: The patient has recorded temperature in the emergency department of 103.2 on 11/15/2019. The patient defervesced with the administration of a broad-spectrum antibiotic coverage and IV fluid. Today, temperature is in the afternoon with pulse rate of 73, respiratory rate 18, blood pressure is 125/82. HEAD, EYES, EARS, NOSE, AND THROAT: Extraocular movements are intact. Sclerae anicteric. Oropharynx is clear. NECK: Supple. LUNGS: Clear to auscultation bilaterally. CARDIAC: Regular rate and rhythm without murmur, rub, or gallop. ABDOMEN: Soft, minimally obese, and nontender. BACK: Minimal right-sided costovertebral angle tenderness on percussion. None on the left side. PELVIC: Deferred to the operative suite. There were no abnormalities at last cystoscopy. EXTREMITIES: Appear within normal limits. LABORATORY STUDIES: The patient's white count is down to 10,600 today with hemoglobin of 8.7, hematocrit of 28.1, platelet count is 443, creatinine is 0.83 with a blood urea nitrogen of 8, potassium is 3.5, glucose 78. CT scan of the patient's abdomen and pelvis was performed on 11/15/2019 and this study shows multiple stones in the patient's right ureter along with an indwelling stent and hydroureter, as well as hydronephrosis consistent with indwelling stent and obstructing stones. Obstructing stones in the right ureter measure 6.35 mm in diameter and 13 mm in diameter. There is nephrocalcinosis evident in both kidneys and punctate calcification also observed on the right. ASSESSMENT AND PLAN: Obstructing right-sided ureteral calculi with intractable pain symptoms and the patient has an indwelling stent for sometime. There is some danger this patient keeping the stent for a long time and stent encrustation occurring. I think during this hospitalization to be prudent to go ahead and proceed with the removal of the stones. She is also developing problems with colonization of stones secondary to the indwelling stent and possible urinary tract infection. These are being covered with appropriate antibiotics. TIME SPENT: Over 70 minutes initial consultation, evaluation, assessment time was spent in the evaluation and coordination of care for this patient today. Job ID: [id number]
[2019-11-16] MEDS: B & O PR SCH (23:45)
[2019-11-17] MEDS: Dextrose 5 % And 0.9 % NaCl 1,000 ML IV SCH (01:01)
[2019-11-17 05:25] LABS: #Lymphocytes 0.7 thou/uL (1.20-3.40); #Monocytes 0.4 thou/uL (0.11-0.59); #Neutrophils 10.8 thou/uL (1.40-6.50); %Monocytes 2.9 % (0.0-10.0); Hemoglobin 9.2 g/dL (12.0-16.0); Mean Corpuscular HGB CONC 29.5 g/dL (32.0-36.0); Mean Corpuscular Hemoglobin 22.9 pg (27.0-31.0); Mean Corpuscular Volume 77.8 fL (78.0-98.0); Mean Platelet Volume 7.3 fL (7.4-10.4); Platelet Count 543 thou/uL (130-400); RBC Distribution Width 13.9 % (11.5-14.5); Red Blood Cell (RBC) Count 4.03 mill/uL (4.20-5.40); White Blood Cell (WBC) Count 11.9 thou/uL (4.8-10.8)
[2019-11-17 05:34] LABS: Anion Gap 14 mmol/L (10-20); BUN (Urea Nitrogen) 8 mg/dL (7.0-18.7); Calc. Creatinine Clearance 96 mL/min (70-130); Calcium 9.3 mg/dL (7.8-10.44); Carbon Dioxide 24 mmol/L (22-29); Chloride 107 mmol/L (98-107); Estimated GFR-MDRD 86; Glucose 128 mg/dL (70-105); Magnesium 2.3 mg/dL (1.6-2.6); Potassium 3.8 mmol/L (3.5-5.1); Sodium 141 mmol/L (136-145)
[2019-11-17] MEDS: Piperacillin/Tazobactam 3.375 GM in Sodium Chloride 0.9% 100 ML IVPB SCH (06:02)
[2019-11-17] MEDS: B & O PR SCH (06:27)
[2019-11-17 08:20] LABS: Vancomycin, Trough 12.7 ug/mL
[2019-11-17] MEDS: Polyethylene Glycol 3350 17 GM Packet PO SCH (08:54)
[2019-11-17] MEDS: Enoxaparin Sodium 40 MG/0.4 ML SYRINGE SC SCH (08:54)
[2019-11-17] MEDS: Vancomycin 1 GM in Premix Bag 1 BAG IVPB SCH (08:54)
[2019-11-17] MEDS: Famotidine 20 MG TAB PO SCH (08:54)
[2019-11-17] MEDS ORDERED: Trospium 20 MG TAB PO SCH (09:00)
--- NOTE | 2019-11-17 09:20 | OP ---
DATE OF PROCEDURE: 11/16/2019 PREOPERATIVE DIAGNOSES: 1. Right ureteral calculi, 6 mm and 13 mm. 2. Recent urinary tract infection with indwelling stent to relieve right collecting system. 3. Stent encrustation with occlusion. POSTOPERATIVE DIAGNOSES: 1. Right ureteral calculi, 6 mm and 13 mm. 2. Recent urinary tract infection with indwelling stent to relieve right collecting system. 3. Stent encrustation with occlusion. PROCEDURES PERFORMED: 1. Right-sided ureteroscopy with laser lithotripsy, 47967. 2. Right-sided stent placement, [id number]. HOOP CUTTER SURGEON: None. SPECIMENS REMOVED: Multiple stones as laser fragments. ESTIMATED BLOOD LOSS: Less than 5 mL. COMPLICATIONS: None evident. DRAINS AND TUBES REMOVED: A 4.5-Gambian x 28 cm double-J ureteral stent without string was left in the patient's right ureter. This will need to be removed at a future time point. BRIEF HISTORY AND INDICATION FOR PROCEDURE: Ms. Celia Garg is a very pleasant 34-year-old female with kidney stones. She underwent cystoscopy and stent placement on 08/24/2019. The patient has had indwelling stent for several months and presents to the emergency department with acute pain symptoms. She also appeared to be ill with an elevated white count. The patient was brought in-house and kept overnight on high-level antibiotics using Zosyn and vancomycin for coverage, as well as ceftriaxone. The patient ultimately agreed to proceed with cystoscopy, laser lithotripsy via ureteroscopy and stent replacement. ANESTHESIA: General endotracheal. DESCRIPTION OF PROCEDURE: The patient was appropriately identified in the preoperative area. Informed written consent was obtained and verified. The patient was transferred to the operative suite, placed in the supine position on the cysto-fluorographic table. Due to a lack of functioning fluorographic instrumentation, we performed this procedure sans fluorography. After induction of general anesthesia, the patient was repositioned in supine lithotomy position and prepped and draped in the usual sterile fashion. Cystoscopic evaluation of the patient's bladder was performed finding a 4.5-Gambian x 28 cm double-J ureteral stent, which was encrusted distally. We removed the indwelling stent. We then accessed the patient's ureter using a 0.035 angled Glidewire and a [place] catheter. We advanced the wire in the ureter and advanced this up to the renal pelvis. The exact positioning could not be confirmed due to lack of fluorography. We placed a second wire and then performed on-rail technique for ureteroscopy using a freehand Shah semi-rigid scope. I identified a 6 mm ureteral calculus in the distal mid ureter and a much larger approximately 13 mm calculus in the proximal third of the patient's ureter. We then performed laser lithotripsy of the distal stone first, breaking up the 6 mm stone into multiple small fragments. We utilized a cyclic rate of 35 and a total power of 10 ybarra. I performed laser lithotripsy, fragmenting the stones into smaller fragments which were recovered using a Zero tip Nitinol basket. In total, we utilized one fiber and one Zero Tip basket for recovery of all the stone fragments. Small chips of stones were not recovered as these were very tiny and will likely fall out on their own. We completely removed both the large and small stone. Some dust debris does remain however. Following laser lithotripsy, we performed stent placement. As we lacked fluoro, we utilized the ureteroscope and placed the distal end of the wire into the patient's renal pelvis under direct visual observation. We left the wire in place. We removed the ureteroscope and subsequently performed cystoscopy, passing the cystoscope over the wire that was previously placed. I examined the patient's bladder and placed a 4.5-Gambian x 28 cm double-J ureteral stent into the patient's right collecting system. We removed a string from the stent at this point and this allowed good coil to be obtained from the patient's bladder. The stent drained properly under visualization. Some stone debris was found in the patient's bladder at the close of the procedure as would be expected. This was all of a size which should pass on its own without requirement for intervention. The left ureteric orifice appeared benign. The remainder of the patient's bladder also appeared benign. The patient's urethra appeared to be within normal range with slight low estrogen changes. Specimens removed; multiple stones which are yellow under cystoscopic evaluation and white in color by room light suggesting either calcium oxalate dihydrate or calcium phosphate type stones. Radial density or lucency cannot be determined in this case. Job ID: [id number]
[2019-11-17] MEDS ORDERED: B & O PR PRN ×2 (09:27→09:28)
[2019-11-17 11:35] VITALS: BP 134/86; TEMP 97.9
[2019-11-17] MEDS ORDERED: cefTRIAXone\\ROCEPHIN 1 GM in Sodium Chloride 0.9% 100 ML IVPB SCH (20:00)
--- NOTE | 2019-11-18 01:51 | DIS ---
DATE OF ADMISSION: 11/15/2019 DATE OF DISCHARGE: 11/17/2019 DISCHARGE DIAGNOSES: 1. Right ureteral kidney stone with hydronephrosis, status post stenting. 2. Abdominal wall hernia. 3. Macrocytic anemia. 4. Leukocytosis. CONSULTATIONS: Roberto Mederos with Urology. PROCEDURES PERFORMED: Right-sided ureteroscopy with laser lithotripsy and right-sided stent placement on 11/16/2019. BRIEF HISTORY OF PRESENT ILLNESS: This is a 34-year-old female with a past medical history of kidney stone status post stent, who presented with a 2-week history of right flank pain and progressive vomiting. She took Cipro and Zofran without any relief. She had a temperature of 103 in the emergency room. She had a CT scan of her abdomen in the emergency room, which showed a 13 mm proximal right ureteral stone migrating to the mid to distal right ureter with hydronephrosis. In addition, there were two additional stones that were 3.5 mm and 3.5 mm. The patient was started on IV vancomycin and Zosyn. Admitted for further workup. HOSPITAL COURSE: Sepsis secondary to obstructive uropathy from right-sided kidney stone with hydronephrosis: The patient underwent right-sided ureteroscopy with laser lithotripsy and stent placement on 11/15. Her urine culture was normal. The patient's fever resolved with antibiotics. She had no abdominal pain, nausea, vomiting, and was tolerating a regular diet on the day of discharge. The patient was discharged with Augmentin for 10 days. She was advised to follow up with Dr. Roberto Mederos in 2 weeks and to get an abdominal x-ray in 10 days. She was advised to drink adequate amounts of water. She was advised to avoid eating high sodium foods and high oxalate foods. Leukocytosis: The patient had a white count of 11.9 on the day of discharge, however, no fevers and clinically had no pain. She can have a repeat CBC done as an outpatient. Anemia: The patient had a hemoglobin of 9.2 on the day of discharge. Consider workup for iron deficiency as an outpatient with her PCP. DISCHARGE PHYSICAL EXAMINATION: VITAL SIGNS: Temp 97.9, HR 58, RR 16, O2 saturation 99% on room air, and BP 134/86. GENERAL: The patient is alert, awake, and oriented x3. CVS: Regular rate and rhythm with no murmurs, rubs, or gallops. LUNGS: Clear to auscultation bilaterally. ABDOMEN: Positive bowel sounds, soft, nontender, and nondistended. She has no CVA tenderness. EXTREMITIES: No edema. PERTINENT LABORATORY DATA: CBC 11/16: White count 11.9, hemoglobin 9.2, hematocrit 31.3, and platelet count of 543. BMP 11/16: Normal except for glucose of 128. Lipase: 20. LFTs: Normal. UA 11/14: Shows 40 ketones, turbid urine, 500 leukocyte esterase, with 21-50 white blood cells. Urine test: Negative. Vanc trough 11/16: 12.7. IMAGING: CT abdomen 11/14: Shows 13 mm proximal right ureteral stone that is migrated distally to the mid to distal right ureter with additional 6 mm and 3.5 mm stones within the mid to distal right ureter. There is right ureteral stent in place. There is persistent prominent dilation of the right renal collecting system. There are stable medullary nephrocalcinosis. There is a slight increasing fluid in the hernia sac involving the midline anterior abdominal wall hernia containing fat. DISCHARGE CONDITION: Stable. ACTIVITY: As tolerated. DIET: Regular diet. DISCHARGE INSTRUCTIONS: The patient should follow up with her PCP in [address] Roberto Mederos in 2 weeks. She should get a KUB in 10 days. She should take Augmentin for 10 days. DISCHARGE MEDICATIONS: 1. Augmentin 875-125 mg tablet p.o. b.i.d. 2. Phenazopyridine 100 mg p.o. t.i.d. p.r.n. 3. VESIcare 5 mg p.o. daily. Job ID: [id number] [facility]
[2019-11-28 18:13] LABS: Color Tan (.); Mg Ammon Phos 60 % (.); Stone Weight 298 mg (.)
== END 2019-11-17 13:47 | disposition home or self-care (01) | DRG 854 ==
LOC: ERS 18:23 → SURG A 22:56
PROVIDERS: ADMIT Internal Medicine; ATTEND Internal Medicine
PROC: 0TC68ZZ Extirpation of Matter from Right Ureter, Via Natural or Artificial Opening Endoscopic (ICD-10-PCS; principal; 2019-11-16)
PROC: 0T768DZ Dilation of Right Ureter with Intraluminal Device, Via Natural or Artificial Opening Endoscopic (ICD-10-PCS; 2019-11-16)
DX: A41.9 Sepsis, unspecified organism (principal); N13.2 Hydronephrosis with renal and ureteral calculous obstruction; T83.89XA Other specified complication of genitourinary prosthetic devices, implants and grafts, initial encounter; D47.3 Essential (hemorrhagic) thrombocythemia; K43.9 Ventral hernia without obstruction or gangrene; Y83.1 Surgical operation with implant of artificial internal device as the cause of abnormal reaction of the patient, or of later complication, without mention of misadventure at the time of the procedure; D53.9 Nutritional anemia, unspecified; D72.829 Elevated white blood cell count, unspecified
CPT/HCPCS: 36415; 74176; 80048; 80053; 80202; 81003; 81015; 81025; 82365; 83690; 83735; 85025; 87086; 88300; 96361; 96365; 96375; C1758; C1769; J0696; J1100; J1610; J1650; J1885; J2001; J2250; J2270; J2405; J2543; J2704; J3010; J3370; J3490; Q9967